=== PATIENT | male | born 1940 | race Caucasian/White ===

== ENCOUNTER 2016-06-05 06:02 | Day surgery (SDC) | payer MEDICARE, OTHER ==
[~2016-06-05] VITALS: Ht 177.8 cm; Wt 90.4 kg
[~2016-06-05 06:02] MED LIST: ASPIRIN 81M81 MG/TA2 PO; ATIVAN 0.50.5 MG/TAB PO; BENICAR40 MG PO; COREG 25MG25 MG/TAB PO; FISH OIL 1000MG1 CAP PO; NORVASC 5MG5 MG/TAB PO; SYNTHROID0.112 MG/T PO; SYNTHROID0.125 MG/T PO; ZETIA 10MG TAB10 MG PO; ZOCOR 20MG20 MG PO; ZOFRAN 4MG T4 MG/TAB PO
[2016-06-05 06:44] VITALS: BP 117/61; PULSE 76; TEMP 989.5
[2016-06-05] MEDS ORDERED: TIROSINT112 MC1 PO (06:52)
[2016-06-05 07:50] VITALS: BP 117/67; PULSE 63; TEMP 97.9
[2016-06-05 08:05] VITALS: BP 107/65; PULSE 54
[2016-06-05 08:20] VITALS: BP 124/69; PULSE 54
[2016-06-05 14:32] VITALS: BP 118/61; PULSE 61
== END 2016-06-05 08:45 | disposition home or self-care (01) ==
LOC: SDCO 06:02
DX: Z12.11 Encounter for screening for malignant neoplasm of colon (principal); K21.0 Gastro-esophageal reflux disease with esophagitis; K57.30 Diverticulosis of large intestine without perforation or abscess without bleeding; K22.2 Esophageal obstruction; R13.12 Dysphagia, oropharyngeal phase
CPT/HCPCS: 43239; 43249; G0121; C1726; J2250; J2405; J3010; J7030

== ENCOUNTER 2019-03-08 15:44 | Outpatient (RCR) | payer SELFPAY ==
[~2019-03-08 15:44] MED LIST changes: +TIROSINT112 MC1 PO
== END 2019-03-09 | disposition home or self-care (01) ==
LOC: COL.CR
DX: Z02.89 Encounter for other administrative examinations (principal)

== ENCOUNTER 2019-06-09 13:37 | Outpatient (RCR) | payer SELFPAY | END 2019-06-11 | disposition home or self-care (01) | LOC: COL.CR | DX: Z02.89 Encounter for other administrative examinations (principal) ==

== ENCOUNTER 2019-07-31 15:50 | Outpatient (RCR) | payer SELFPAY | END 2019-09-10 | disposition home or self-care (01) | LOC: COL.CR | DX: Z02.89 Encounter for other administrative examinations (principal) ==

== ENCOUNTER 2020-01-15 14:09 | Outpatient (RCR) | payer SELFPAY | END 2020-04-14 | disposition home or self-care (01) | LOC: COL.CR | DX: Z02.89 Encounter for other administrative examinations (principal) ==

== ENCOUNTER 2020-07-15 16:09 | Outpatient (RCR) | payer SELFPAY | END 2020-07-16 | disposition still patient (30) | LOC: COL.CR | DX: Z02.89 Encounter for other administrative examinations (principal) ==

== ENCOUNTER 2020-10-04 16:59 | Outpatient (RCR) | payer SELFPAY | END 2020-10-15 | disposition home or self-care (01) | LOC: COL.CR | DX: Z02.89 Encounter for other administrative examinations (principal) ==

== ENCOUNTER 2021-07-16 15:20 | Outpatient (RCR) | payer SELFPAY | END 2021-08-14 | LOC: COL.CR | DX: Z29.8 Encounter for other specified prophylactic measures (principal) ==

== ENCOUNTER 2021-09-12 10:17 | Outpatient (RCR) | payer SELFPAY | END 2021-09-13 | LOC: COL.CR | DX: Z29.8 Encounter for other specified prophylactic measures (principal) ==

== ENCOUNTER 2021-10-10 12:06 | Outpatient (RCR) | payer SELFPAY | END 2021-10-14 | LOC: COL.CR | DX: Z29.8 Encounter for other specified prophylactic measures (principal) ==

== ENCOUNTER 2021-10-15 02:42 | Outpatient (RCR) | payer SELFPAY | END 2021-11-13 | LOC: COL.CR | DX: Z29.8 Encounter for other specified prophylactic measures (principal) ==

== ENCOUNTER 2021-12-10 13:18 | Outpatient (RCR) | payer SELFPAY | END 2021-12-14 | LOC: COL.CR | DX: Z29.8 Encounter for other specified prophylactic measures (principal) ==

== ENCOUNTER → 2022-01-14 | Outpatient (RCR) | payer SELFPAY | LOC: COL.CR | DX: Z29.8 Encounter for other specified prophylactic measures (principal) ==

== ENCOUNTER 2023-11-05 11:18 | Emergency (ER) | payer MEDICARE ==
[~2023-11-05] VITALS: Ht 175.3 cm; Wt 80.0 kg
[2023-11-05 11:39] VITALS: TEMP 98.1
[2023-11-05] MEDS ORDERED: Lido/EPI/Tetrac Gel 3 ML SYRINGE TOP ONE (12:30)
[2023-11-05 14:29] VITALS: BP 175/74; PULSE 69
== END 2023-11-05 14:36 | disposition home or self-care (01) ==
LOC: COL.ER 11:18
DX: S09.90XA Unspecified injury of head, initial encounter (principal); S01.01XA Laceration without foreign body of scalp, initial encounter; Z79.82 Long term (current) use of aspirin; W18.30XA Fall on same level, unspecified, initial encounter; W22.8XXA Striking against or struck by other objects, initial encounter; Y93.89 Activity, other specified